=== PATIENT | male | born 1995 | race Caucasian/White ===

== ENCOUNTER 2021-02-27 19:02 | Emergency (ER) | payer OTHER ==
[~2021-02-27] VITALS: Ht 175.3 cm; Wt 90.9 kg
[2021-02-27] MEDS ORDERED: CLOT1CRE56 TOP (20:10)
[2021-02-27 20:20] VITALS: BP 124/83
[2021-02-27] MEDS ORDERED: CLOTRIMAZOLE 1% TOPICAL CREAM 30GM TOP ONE (20:25)
[2021-02-27] MEDS ORDERED: CLOTRIMAZOLE 1% TOPICAL CREAM 30GM TOP SCH (21:00)
== END 2021-02-27 20:36 | disposition home or self-care (01) ==
LOC: M ED 19:02
DX: N47.1 Phimosis (principal); L98.9 Disorder of the skin and subcutaneous tissue, unspecified

== ENCOUNTER → 2021-04-30 | Day surgery (SDC) | payer OTHER ==
[~2021-04-30] VITALS: Ht 175.3 cm; Wt 97.5 kg
[~2021-04-30] MED LIST: ACETAMINOPHEN 1000MG 100ML IV BTL (OFIRMEV) (J0131 PER 10MG) As Ordered ONE; BACITRACIN OINTMENT 30GM TUBE As Ordered ONE; CLOT1CRE56 TOP; KETOROLAC 60MG 2ML VIAL As Ordered ONE; LIDOCAINE 2% 100MG/5ML SDV (FOR ANES.) As Ordered ONE; LR 1,000 ML IV ONE; LR 1,000 ML IV SCH; METOCLOPRAMIDE INJ 10MG/2ML VIAL (J2765 PER 1) IV PRN; MIDAZOLAM INJ 2MG/2ML VIAL (J2250 PER 1MG) As Ordered ONE; ONDANSETRON 4MG/2ML VIAL As Ordered ONE; ONDANSETRON 4MG/2ML VIAL IV PRN; PERC5TAB12 PO; PERCOCET 5MG/325MG TAB PO PRN; ceFAZolin SOD 2 GM in IV 1 EA IV ONE; dexameTHASONE 4 MG/ML 1ML VIAL (J1100 PER 1MG) As Ordered ONE; fentaNYL 100 MCG/2 ML INJECTION As Ordered ONE; fentaNYL 100 MCG/2 ML INJECTION IV PRN; oxyCODONE 5MG TAB PO PRN; propofoL 200 MG/20 ML VIAL As Ordered ONE
[2021-04-30 11:56] VITALS: BP 121/77
== END | disposition home or self-care (01) ==
LOC: M SDC 07:52
PROVIDERS: ATTEND Urology
DX: N47.1 Phimosis (principal)
CPT/HCPCS: 54161; 88304; J0131; J0690; J1100; J1885; J2250; J2405; J3010